=== PATIENT | female | born 1980 | race Caucasian/White ===

== ENCOUNTER 2021-11-17 17:39 | Emergency (ER) | payer BC, SELFPAY ==
[2021-11-17 18:07] VITALS: BP 139/83; PULSE 78; RESP 14; TEMP 36.4; O2SAT 98; BMI 33.5
--- NOTE | 2021-11-17 18:18 | HMH.EDUTC ---
[facility] [place] Clinical Impression: Sinusitis Qualifiers: Sinusitis location: unspecified location Chronicity: acute Recurrence: non-recurrent Qualified Code(s): J01.90 - Acute sinusitis, unspecified Otitis media Qualifiers: Otitis media type: suppurative Chronicity: acute Laterality: bilateral Recurrence: non-recurrent Spontaneous tympanic membrane rupture: without spontaneous rupture Qualified Code(s): H66.003 - Acute suppurative otitis media without spontaneous rupture of ear drum, bilateral Disposition: Home, Self-Care Condition on Discharge: Good Instructions: Middle Ear Infection, DI for Sinusitis Additional Instructions: Drink plenty of fluids. Take tylenol or ibuprofen for pain or fever. Take the medications as directed. Follow up with your regular doctor. GO TO THE ER FOR ANY WORSENING SYMPTOMS Prescriptions: Benzonatate [Benzonatate 100mg cap] 100 mg PO TIDP PRN #30 cap PRN Reason: Cough Transmission Status: Received by [id number] methylPREDNISolone [Medrol] 4 mg PO DIRECTED 6 Days #21 packet Transmission Status: Received by [id number] Azithromycin [Z-Tim 250mg Tab*] 250 mg PO UD DOSE PK #6 tab Transmission Status: Received by [id number] Referrals: Provider,Referral, [Primary Care Provider] - Time of Disposition: 18:47 Medical Decision Making - Medical Records Medical records reviewed: No: I reviewed the patient's medical records. - Joss Inquiry Pt receiving controlled substance: No Vital Signs: 11/17/21 18:07 11/17/21 18:47 Temperature 97.5 F L 98.1 F Temperature Source Oral Oral Pulse Rate 78 Pulse Rate [Left] 78 Respiratory Rate 14 14 Blood Pressure 139/83 Blood Pressure [Right Arm] 139/83 Blood Pressure Mean [Right Arm] 101 02 Sat by Pulse Oximetry 98 - Lab Data Lab results reviewed: Yes: I reviewed the patient's lab results. [facility] [place] HPI - General Stated complaint: ears and sinus Time Seen by Provider: 11/17/21 18:18 Description of Symptoms (Recalled from Triage Doc. by RN): patient comes in today with complaints of ear pain, sinus congestion. HEENT Symptoms (Recalled from RN notes): Yes Resp Symptoms (Recalled from RN notes): No Skin Symptoms (Recalled from RN notes): No MS Symptoms (Recalled from RN notes): No Functional Status (Recalled from RN notes): wnl - History of Present Illness Provider Complaint: She states that for the past 2 weeks she has had sinus congestion and bilateral ear pain. She denies any fever or chills or body aches. - Related Data Home Medications Medication Instructions Recorded Confirmed ALPRAZolam [Xanax 0.5mg tab] 0.5 mg PO NEEDED PRN 11/17/21 11/17/21 Sertraline HCl [Zoloft 100mg 100 mg PO DAILY 11/17/21 11/17/21 tablet] Previous Rx's Medication Instructions Recorded Azithromycin [Z-Tim 250mg Tab*] 250 mg PO UD DOSE PK #6 tab 11/17/21 Benzonatate [Benzonatate 100mg 100 mg PO TIDP PRN #30 cap 11/17/21 cap] methylPREDNISolone [Medrol] 4 mg PO DIRECTED 6 Days #21 11/17/21 packet Allergies Allergy/AdvReac Type Severity Reaction Status Date / Time No Known Allergies Allergy Verified 11/17/21 18:10 - Worker's Comp Is this a Worker's Comp case?: No [facility] History - Hepatitis A Screen Attestation statement:: This patient has been screened for Hepatitis A risk factors. I have reviewed the patient's past medical history: Yes ROS Obtained: Yes All systems reviewed & no additional complaints - Constitutional Constitutional: Reports as per HPI - Eyes Eyes: Denies eye discharge - ENT Ears, Nose, Mouth, and Throat: Reports as per HPI - Cardiovascular Cardiovascular: Denies chest pain - Respiratory Respiratory: Denies chest congestion, Reports cough Physical Exam - General General appearance: alert, in no apparent distress - Head Head exam: atraumatic, normocephalic, normal inspection - Eye Eye exam: Present:
[2021-11-17 18:47] VITALS: BP 139/83; PULSE 78; RESP 14; TEMP 36.7
== END 2021-11-17 18:49 | disposition home or self-care (01) ==
LOC: UTC 17:49
PROVIDERS: Emergency Provider Nurse Practitioner Family
DX: J01.90 Acute sinusitis, unspecified (principal); H66.003 Acute suppurative otitis media without spontaneous rupture of ear drum, bilateral
CPT/HCPCS: 99212; G0463

== ENCOUNTER → 2022-04-28 08:32 | Outpatient (CLI) | payer BC, SELFPAY ==
[2022-04-28 09:31] LABS: Basophils # 0.1 K/mm3 (0-0.2); Basophils % 1.2 % (0.1-2.0); Eosinophils # 0.2 K/mm3 (0.0-0.4); Eosinophils % 1.6 % (0.1-12.0); Hematocrit 40.3 % (37.0-47.0); Hemoglobin 13.3 g/dL (12.2-16.2); Lymphocytes # 2.4 K/mm3 (0.7-4.5); Lymphocytes % 25.7 % (10-50); Mean Corpuscular HGB Conc 33.1 g/dL (31.8-35.4); Mean Corpuscular Hemoglobin 29.5 pg (27.0-31.2); Mean Corpuscular Volume 89.3 fl (81-99); Mean Platelet Volume 7.9 fl (7.4-10.4); Monocytes # 0.3 K/mm3 (0.1-1.0); Monocytes % 3.3 % (1.7-9.3); Neutrophils # 6.2 K/mm3 (1.8-7.8); Neutrophils % 68.2 % (37.0-80.0); Platelet Count 433 K/mm3 (142-424); Red Blood Count 4.51 M/mm3 (4.20-5.40); White Blood Count 9.1 K/mm3 (4.8-10.8)
[2022-04-28 10:10] LABS: Alanine Aminotransferase 16 U/L (12-78); Albumin Level 4.7 g/dl (3.5-5.0); Albumin/Globulin Ratio 1.8 (1.1-1.8); Alkaline Phosphatase 121 U/L (38-126); Anion Gap 15.1 mEq/L (5-15); Aspartate Amino Transferase 23 U/L (14-36); Bilirubin,Total 0.5 mg/dl (0.2-1.3); Blood Urea Nitrogen 15 mg/dl (7-17); Calcium 9.9 mg/dl (8.4-10.2); Carbon Dioxide 23 mmol/L (22.0-30.0); Chloride 104 mmol/L (98-107); Chol/HDL Ratio 3.6 (1-3.5); Cholesterol 185 mg/dl (140-200); Estimated Glomerular Filt Rate 92 ml/min (>60); GFR (African American) 111 ML/MIN (>60); Globulin 2.6 g/dL (1.3-3.2); Glucose 123 mg/dl (74-100); HDL Cholesterol 51 mg/dl (40-60); Potassium 4.1 mmoL/L (3.5-5.1); Sodium 138 mmol/L (136-145); Total Protein,Serum 7.3 g/dl (6.3-8.2); Triglycerides 63 mg/dl (30-150); VLDL Cholesterol 13 mg/dL (0-40)
[2022-04-28 10:21] LABS: Direct LDL Cholesterol 117.46 mg/dL (100-129)
[2022-04-28 10:40] LABS: Thyroid Stimulating Hormone 1.63 uIU/mL (0.465-4.68)
== END ==
PROVIDERS: PCP Nurse Practitioner Family; Visit Provider Nurse Practitioner Family
DX: Z00.00 Encounter for general adult medical examination without abnormal findings (principal); Z79.899 Other long term (current) drug therapy
CPT/HCPCS: 36415; 80053; 80061; 84443; 85025

== ENCOUNTER 2022-07-09 12:02 | Emergency (ER) | payer BC, SELFPAY ==
[2022-07-09 12:45] VITALS: BP 132/87; PULSE 112; RESP 12; TEMP 36.9; O2SAT 99; BMI 34.3
--- NOTE | 2022-07-09 13:25 | EXP.UTC ---
Discharge Plan Disposition Patient Disposition: Home, Self-Care Condition: Good Prescriptions Prescriptions: New nnzemdkhhiwkjsa-jxirqffpy-WJ [Bromfed DM] 2-30-10 mg/5 mL syrup 10 ml PO Q6H PRN (Reason: cold symptoms) Qty: 118 0RF No Action sertraline 100 MG tablet 100 mg PO DAILY alprazolam 0.5 MG tablet 0.5 mg PO NEEDED PRN (Reason: Anxiety) Clinical Impressions Clinical Impression: Upper respiratory tract infection, Acute dysfunction of both eustachian tubes Instructions Patient Instructions: DI for Eustachian Tube Dysfunction-Adult, DI for Sinusitis Discharge ED Provider: Patricia Jennings [facility] General Stated complaint: congestion, headache Mode of Arrival: Ambulatory Source of Information: Patient Limitations: No Limitations Time Seen by Provider: 07/09/22 13:25 Description of Symptoms (Recalled from Triage Doc. by RN): ear pain, and sinus pressure HEENT Symptoms (Recalled from RN notes): Yes Resp Symptoms (Recalled from RN notes): No Skin Symptoms (Recalled from RN notes): No MS Symptoms (Recalled from RN notes): No Functional Status (Recalled from RN notes): n/a History of Present Illness Provider Complaint: Pt relates that for the last 3 days she has had a lot of sinus pressure and pain, earache and slight cough. She has been doing nasal lavage for her symptoms. Related Data Home Medications Medication Instructions Recorded Confirmed alprazolam 0.5 mg tablet 0.5 mg PO NEEDED PRN Anxiety 11/17/21 07/09/22 sertraline 100 mg tablet 100 mg PO DAILY Depression 11/17/21 07/09/22 Previous Rx's Medication Instructions Recorded qvwhnpacmiqruas-mwdfidrptzrktsy-PG 10 ml PO Q6H PRN cold symptoms 07/09/22 2 mg-30 mg-10 mg/5 mL oral syrup #118 mL (Bromfed DM) Allergies Allergy/AdvReac Type Severity Reaction Status Date / Time No Known Allergies Allergy Verified 07/09/22 12:54 Worker's Comp Is this a Worker's Comp case?: No [facility] Disclaimer: The information contained in this section may have been updated after the patient was seen, as this information can be updated by other users. Social History Smoking Status: Never smoker alcohol intake: current current occupational status: employed Travel in the last 8 weeks: None ROS Obtained: Yes All systems reviewed & no additional complaints except as documented Constitutional Constitutional: Reports system reviewed and no additional complaints, except as documented Eyes Eyes: Reports system reviewed and no additional complaints, except as documented ENT Ears, Nose, Mouth, and Throat: Reports as per HPI, Reports otalgia, Reports nasal congestion, Reports nasal discharge and Reports sinus pressure Cardiovascular Cardiovascular: Reports system reviewed and no additional complaints, except as documented Respiratory Respiratory: Reports system reviewed and no additional complaints, except as documented and Reports cough Gastrointestinal Gastrointestingal: Reports system reviewed and no additional complaints, except as documented Genitourinary Female Genitourinary: Reports system reviewed and no additional complaints, except as documented Musculoskeletal Musculoskeletal: Reports system reviewed and no additional complaints, except as documented Integumentary/Breasts Skin/Breast: Reports system reviewed and no additional complaints, except as documented Neurologic Neurologic: Reports system reviewed and no additional complaints, except as documented Endocrine Endocrine: Reports system reviewed and no additional complaints, except as documented Hematologic/Lymphatic Henatologic/Lymphatic: Reports system reviewed and no additional complaints, except as documented Allergic/Immunologic Allergic/Immunologic: Reports system reviewed and no additional complaints, except as documented Physical Exam General General appearance: alert and in no apparent distress Head Head exam: atraumatic and normocephalic Eye Eye
[2022-07-09 13:48] VITALS: BP 132/87; PULSE 112; RESP 12; TEMP 36.9; O2SAT 99
--- NOTE | 2022-07-09 16:21 | EXP.UTC ---
Discharge Plan Disposition Patient Disposition: Home, Self-Care Condition: Good Prescriptions Prescriptions: New phnbayoxbfnipnb-fwbpzktgy-DT [Bromfed DM] 2-30-10 mg/5 mL syrup 10 ml PO Q6H PRN (Reason: cold symptoms) Qty: 118 0RF amoxicillin 875 mg tablet 875 mg PO BID 10 Days Qty: 20 0RF No Action sertraline 100 MG tablet 100 mg PO DAILY alprazolam 0.5 MG tablet 0.5 mg PO NEEDED PRN (Reason: Anxiety) Clinical Impressions Clinical Impression: Upper respiratory tract infection, Acute dysfunction of both eustachian tubes Instructions Patient Instructions: DI for Sinusitis, DI for Eustachian Tube Dysfunction-Adult Discharge ED Provider: Patricia Jennings [facility] [place] General Stated complaint: congestion, headache Mode of Arrival: Ambulatory Source of Information: Patient Limitations: No Limitations Time Seen by Provider: 07/09/22 13:25 Description of Symptoms (Recalled from Triage Doc. by RN): ear pain, and sinus pressure HEENT Symptoms (Recalled from RN notes): Yes Resp Symptoms (Recalled from RN notes): No Skin Symptoms (Recalled from RN notes): No MS Symptoms (Recalled from RN notes): No Functional Status (Recalled from RN notes): n/a History of Present Illness Provider Complaint: Pt states that for the past few days she has had sinus drainage and ear pain. She states she has not taken anything for her symptoms. Related Data Home Medications Medication Instructions Recorded Confirmed alprazolam 0.5 mg tablet 0.5 mg PO NEEDED PRN Anxiety 11/17/21 07/09/22 sertraline 100 mg tablet 100 mg PO DAILY Depression 11/17/21 07/09/22 Previous Rx's Medication Instructions Recorded amoxicillin 875 mg tablet 875 mg PO BID 10 days #20 tabs 07/09/22 inaauicsmnwxagk-nximhbhxcoxnxlp-PE 10 ml PO Q6H PRN cold symptoms 07/09/22 2 mg-30 mg-10 mg/5 mL oral syrup #118 mL (Bromfed DM) Allergies Allergy/AdvReac Type Severity Reaction Status Date / Time No Known Allergies Allergy Verified 07/09/22 12:54 Worker's Comp Is this a Worker's Comp case?: No [facility] Disclaimer: The information contained in this section may have been updated after the patient was seen, as this information can be updated by other users. Social History (Updated 07/09/22 @ 13:40 by Patricia Jennings APRN) Smoking Status: Never smoker alcohol intake: current current occupational status: employed Travel in the last 8 weeks: None ROS Obtained: Yes All systems reviewed & no additional complaints except as documented Constitutional Constitutional: Reports system reviewed and no additional complaints, except as documented Eyes Eyes: Reports system reviewed and no additional complaints, except as documented ENT Ears, Nose, Mouth, and Throat: Reports system reviewed and no additional complaints, except as documented, Reports otalgia, Reports nasal congestion and Reports nasal discharge Cardiovascular Cardiovascular: Reports system reviewed and no additional complaints, except as documented Respiratory Respiratory: Reports system reviewed and no additional complaints, except as documented and Reports cough Gastrointestinal Gastrointestingal: Reports system reviewed and no additional complaints, except as documented Genitourinary Female Genitourinary: Reports system reviewed and no additional complaints, except as documented Musculoskeletal Musculoskeletal: Reports system reviewed and no additional complaints, except as documented Integumentary/Breasts Skin/Breast: Reports system reviewed and no additional complaints, except as documented Neurologic Neurologic: Reports system reviewed and no additional complaints, except as documented Endocrine Endocrine: Reports system reviewed and no additional complaints, except as documented Hematologic/Lymphatic Henatologic/Lymphatic: Reports system reviewed and no additional complaints, except as documented Allergic/Immunologic Allergic/Immunologic: Reports system revi
== END 2022-07-09 13:47 | disposition home or self-care (01) ==
PROVIDERS: Emergency Provider Nurse Practitioner Family
DX: J06.9 Acute upper respiratory infection, unspecified (principal); H69.83 Other specified disorders of Eustachian tube, bilateral
CPT/HCPCS: 99212; 99213; G0463

== ENCOUNTER → 2022-07-15 23:49 | Outpatient (CLI) | payer BC, SELFPAY ==
[2022-07-15 18:37] LABS: Basophils # 0.1 K/mm3 (0-0.2); Basophils % 0.8 % (0.1-2.0); Eosinophils # 0.2 K/mm3 (0.0-0.4); Eosinophils % 1.8 % (0.1-12.0); Hemoglobin 13.8 g/dL (12.2-16.2); Lymphocytes # 2.4 K/mm3 (0.7-4.5); Lymphocytes % 21.3 % (10-50); Mean Corpuscular HGB Conc 33.7 g/dL (31.8-35.4); Mean Corpuscular Hemoglobin 30.1 pg (27.0-31.2); Mean Corpuscular Volume 89.3 fl (81-99); Mean Platelet Volume 8.8 fl (7.4-10.4); Monocytes # 0.4 K/mm3 (0.1-1.0); Monocytes % 3.6 % (1.7-9.3); Neutrophils % 72.5 % (37.0-80.0); Platelet Count 432 K/mm3 (142-424); Red Blood Count 4.59 M/mm3 (4.20-5.40); Red Cell Distribution Width 13.2 % (11.5-17.5); White Blood Count 11.1 K/mm3 (4.8-10.8)
[2022-07-15 18:46] LABS: Alanine Aminotransferase 20 U/L (12-78); Albumin Level 4.5 g/dl (3.5-5.0); Albumin/Globulin Ratio 1.7 (1.1-1.8); Alkaline Phosphatase 95 U/L (38-126); Anion Gap 11.3 mEq/L (5-15); Aspartate Amino Transferase 23 U/L (14-36); Bilirubin,Total 0.5 mg/dl (0.2-1.3); Blood Urea Nitrogen 12 mg/dl (7-17); Calcium 8.8 mg/dl (8.4-10.2); Carbon Dioxide 29 mmol/L (22.0-30.0); Chloride 101 mmol/L (98-107); Chol/HDL Ratio 3.9 (1-3.5); Cholesterol 160 mg/dl (140-200); Estimated Glomerular Filt Rate 110 ml/min (>60); GFR (African American) 133 ML/MIN (>60); Globulin 2.6 g/dL (1.3-3.2); Glucose 121 mg/dl (74-100); HDL Cholesterol 41 mg/dl (40-60); Potassium 4.3 mmoL/L (3.5-5.1); Sodium 137 mmol/L (136-145); Total Protein,Serum 7.1 g/dl (6.3-8.2); Triglycerides 214 mg/dl (30-150); VLDL Cholesterol 43 mg/dL (0-40)
[2022-07-15 19:18] LABS: Thyroid Stimulating Hormone 1.84 uIU/mL (0.465-4.68)
[2022-07-15 19:26] LABS: Hemoglobin A1C 5.7 % (4.0-6.0)
== END ==
PROVIDERS: PCP Student in an Organized Health Care Education/Training Program; Visit Provider Student in an Organized Health Care Education/Training Program
DX: Z76.89 Persons encountering health services in other specified circumstances (principal); Z13.220 Encounter for screening for lipoid disorders; Z13.1 Encounter for screening for diabetes mellitus; Z13.29 Encounter for screening for other suspected endocrine disorder; Z79.899 Other long term (current) drug therapy
CPT/HCPCS: 80053; 80061; 83036; 84443; 85025

== ENCOUNTER → 2022-07-27 10:38 | Outpatient (CLI) | payer BC, SELFPAY ==
--- NOTE | 2022-07-27 10:38 | MM_ITS ---
PROCEDURE INFORMATION: Exam: MG Bilateral Screening 3D Mammography Exam date and time: 07/27/2022 10:51 AM Age: 42 years old Clinical indication: Screening examination TECHNIQUE: Imaging protocol: Bilateral Screening tomosynthesis and 2D mammography including computer-aided detection (CAD) when performed. COMPARISON: No relevant prior studies available. FINDINGS: MAMMOGRAPHY: Breast composition: The breasts are almost entirely fatty. Mass: None. Architectural distortion: None. Calcifications: No suspicious calcifications. Asymmetric density: None. Skin thickening: None. Axillary adenopathy: None. IMPRESSION: No mammographic evidence of malignancy. Annual screening is recommended unless otherwise clinically indicated. ASSESSMENT: BI-RADS Category 1: Negative
== END ==
PROVIDERS: PCP Student in an Organized Health Care Education/Training Program; Visit Provider Student in an Organized Health Care Education/Training Program
DX: Z12.31 Encounter for screening mammogram for malignant neoplasm of breast (principal)
CPT/HCPCS: 77063; 77067

== ENCOUNTER 2022-09-05 10:57 | Outpatient (RCR) | payer BC, SELFPAY ==
--- NOTE | 2022-09-05 11:32 | HMH.PTOPEV ---
PT Outpatient Evaluation Rehab PT Outpatient Evaluation Start: 09/05/22 11:16 Freq: Status: Active Protocol: Document 09/05/22 11:16 TOPHER (Rec: 09/05/22 11:31 TOPHER [id number]) E-signed By Kip Goode, PT Outpatient Therapy Subjective History Subjective History Pt reports insidious onset left sided tinnitis beginning ~ 3 months ago following sinus infection, and reports left sided jaw discomfort beginning ~1 month ago. 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, and 'my neck has been hurting a bit too.' *see initial SOAP note for all objective measures* Chief Complaint Pain,Stiff,Clicks Symptom Type Ache,Sharp,Dull Symptoms Relieved By Rest/Positioning,Heat,Ice,OTC Meds Symptoms Aggravated By Physical Activity Prior Functional Limitations Recreation Activity Current Functional Limitations Squatting Symptom Description Constant but Variable Level of pain today (0-10) 8 Pain scale - at its best (0-10) 8 Pain scale - at its worst (0-10) 8 Outpatient Therapy Assessment Impairments Problems/Impairmments Palpation Tenderness,Impaired Range of Motion,Impaired Strength,Impaired Recreational Activities,Subjective C/O Pain,Impaired Self Care/Self Management Prognosis Rehab Potential Good Clinical Impression Consistent with Diagnosis Yes Short Term Goals Number of Weeks 4-6 Decreased Palpation Tenderness Yes: 0-1/4 Left masseter, lateral pterygoid Increase Range of Motion Yes: WFL AROM B/L TMJ Increase Strength Yes: 4+-5/5 masseter,lateral pterygoid Return to Recreational Activities Yes: EATING,DRINKING,CHEWING WFL Decrease Subjective C/O Pain Yes: 0-2/10 w/above activities Patient to be Ind w/ HEP Yes Patient to be Ind w/ Advanced HEP Yes Outpatient Therapy Plan of Care Treatment Plan May Include Therapeutic Exercise Including Home Yes Exercise Program Manual Therapy Techniques Yes Neuromuscular Re-education Yes T
== END 2022-09-05 10:59 | disposition home or self-care (01) ==
LOC: PT 10:57
PROVIDERS: PCP Student in an Organized Health Care Education/Training Program; Visit Provider Otolaryngology
DX: S03.00XA Dislocation of jaw, unspecified side, initial encounter (principal)
CPT/HCPCS: 97163

== ENCOUNTER → 2022-10-03 15:34 | Outpatient (CLI) | payer BC, SELFPAY ==
--- NOTE | 2022-10-03 15:45 | XR_ITS ---
FINAL REPORT CLINICAL HISTORY: Neck pain, no injury. FINDINGS: SPINE CERVICAL COMPLETE/FLEXION & EXT The vertebrae are normal height. Alignment is normal. There is a disc osteophyte complex at C5-C6. There is no abnormal movement with flexion or extension. There is no significant neural foraminal narrowing. Soft tissues are unremarkable. IMPRESSION: No acute process. Reviewed, Interpreted and Dictated by Jayden Natarajan III, MD Transcribed by Chucky Davis Authenticated and . [facility]
[2022-10-03 17:33] LABS: Thyroid Stimulating Hormone 1.56 uIU/mL (0.465-4.68)
[2022-10-03 18:09] LABS: Vitamin B12 645 pg/mL (239-931)
== END ==
PROVIDERS: PCP Student in an Organized Health Care Education/Training Program; Visit Provider Nurse Practitioner Family
DX: M54.2 Cervicalgia (principal); E66.9 Obesity, unspecified; F41.9 Anxiety disorder, unspecified; F45.8 Other somatoform disorders; H90.3 Sensorineural hearing loss, bilateral; H93.19 Tinnitus, unspecified ear; R06.83 Snoring; R29.2 Abnormal reflex; R53.83 Other fatigue; Z68.33 Body mass index [BMI] 33.0-33.9, adult
CPT/HCPCS: 36415; 72052; 82607; 82746; 84443

== ENCOUNTER → 2022-10-19 10:07 | Outpatient (CLI) | payer BC, SELFPAY ==
--- NOTE | 2022-10-19 10:07 | MR_ITS ---
FINAL REPORT CLINICAL HISTORY: hearing loss, eval posterior fossa tinnitus 17ml prohance injected FINDINGS: Multiplanar MR imaging of the brain was performed without and with contrast, with attention to the posterior fossa, cerebellopontine angles and internal auditory canals. There is no evidence of intracranial hemorrhage or mass. The ventricular size is within normal limits. There is no evidence of shift of the midline structures. No area of abnormal restricted diffusion is identified. Normal major vessel vascular flow voids are seen. No abnormal contrast enhancement is identified within the brain. No mass or abnormal contrast enhancement is seen within the cerebellopontine angles or internal auditory canals. No focal abnormality is identified of the temporal bones. IMPRESSION: No acute intracranial abnormality identified. No mass or abnormal contrast enhancement identified within the cerebellopontine angles or internal auditory canals. Reviewed, Interpreted and Dictated by Rodney Lea MD Transcribed by Nancy Mcarthur Authenticated and [facility]
== END ==
LOC: RAD 10:07
PROVIDERS: PCP Student in an Organized Health Care Education/Training Program; Visit Provider Nurse Practitioner Family
DX: H93.19 Tinnitus, unspecified ear (principal); H90.3 Sensorineural hearing loss, bilateral; F45.8 Other somatoform disorders; M54.2 Cervicalgia; F41.9 Anxiety disorder, unspecified; R06.83 Snoring; R29.2 Abnormal reflex; R53.83 Other fatigue; E66.9 Obesity, unspecified; Z68.33 Body mass index [BMI] 33.0-33.9, adult
CPT/HCPCS: 70553; A9576

== ENCOUNTER → 2022-11-04 08:57 | Outpatient (CLI) | payer BC, SELFPAY ==
[2022-11-04 09:29] LABS: Basophils # 0.1 K/mm3 (0-0.2); Basophils % 0.9 % (0.1-2.0); Eosinophils # 0.2 K/mm3 (0.0-0.4); Eosinophils % 2.2 % (0.1-12.0); Hematocrit 39.6 % (37.0-47.0); Hemoglobin 13.1 g/dL (12.2-16.2); Lymphocytes # 2.3 K/mm3 (0.7-4.5); Mean Corpuscular Hemoglobin 28.6 pg (27.0-31.2); Mean Corpuscular Volume 86.7 fl (81-99); Mean Platelet Volume 7.6 fl (7.4-10.4); Monocytes # 0.3 K/mm3 (0.1-1.0); Monocytes % 3.2 % (1.7-9.3); Neutrophils # 6.2 K/mm3 (1.8-7.8); Neutrophils % 68.7 % (37.0-80.0); Platelet Count 316 K/mm3 (142-424); Red Blood Count 4.58 M/mm3 (4.20-5.40); Red Cell Distribution Width 13.1 % (11.5-17.5)
[2022-11-04 10:13] LABS: Anion Gap 14.4 mEq/L (5-15); Blood Urea Nitrogen 9 mg/dl (7-17); Calcium 8.9 mg/dl (8.4-10.2); Carbon Dioxide 25 mmol/L (22.0-30.0); Chloride 102 mmol/L (98-107); Estimated Glomerular Filt Rate 110 ml/min (>60); GFR (African American) 133 ML/MIN (>60); Glucose 139 mg/dl (74-100); Potassium 4.4 mmoL/L (3.5-5.1); Sodium 137 mmol/L (136-145)
[2022-11-04 10:14] LABS: Hemoglobin A1C 5.7 % (4.0-6.0)
== END ==
LOC: LAB 08:58
PROVIDERS: PCP Nurse Practitioner Family; Visit Provider Nurse Practitioner Family
DX: D75.839 Thrombocytosis, unspecified (principal); R73.03 Prediabetes; Z86.32 Personal history of gestational diabetes; G47.33 Obstructive sleep apnea (adult) (pediatric); R06.83 Snoring; R53.83 Other fatigue
CPT/HCPCS: 36415; 80048; 83036; 85025; G0399

== ENCOUNTER → 2022-12-06 10:36 | Outpatient (CLI) | payer BC, SELFPAY | LOC: RT 10:37 | PROVIDERS: PCP Nurse Practitioner Family; Visit Provider Nurse Practitioner | DX: R00.0 Tachycardia, unspecified (principal); I49.9 Cardiac arrhythmia, unspecified; F41.1 Generalized anxiety disorder; G47.33 Obstructive sleep apnea (adult) (pediatric); R73.03 Prediabetes | CPT/HCPCS: 93270 ==

== ENCOUNTER → 2022-12-23 13:41 | Outpatient (CLI) | payer BC, SELFPAY ==
--- NOTE | 2022-12-23 13:45 | CA_ITS ---
APPROVED REPORT EXAM: Comprehensive 2D, Doppler, and color-flow Echocardiogram First Assist: Beatriz Moss RVT Ht: 5 ft 3 in Wt: 190lbs BSA: 1.89 BP: 134/93 mmHg Indications: SOA,JAY JAY,TACHYCARDIA,ARRHYTHMIA 2D Dimensions LVOT 2.15 cm (M/F) 1.5-2.5 LA Volume 18.70 mL LA Volume Index 9.89 mL/m2 (M/F) 16-34 M-Mode Dimensions RVDd 3.38 cm (0.9-2.6) LA Diam 2.71 cm (1.9-4.0) LVDd 3.92 cm (3.5-5.7) Ao Diam 2.79 cm (2.0-3.7) LVDs 2.43 cm (3.5-5.7) IVSd 1.06 cm (0.6-1.1) PWd 0.68 cm (0.6-1.1) EF (Teich) 68.80% FS 38.00% EDV (Teich) 66.70 mL TAPSE 1.79 (<1.7) ESV (Teich) 20.80 mL LV Diastology MED E' 11.20 (< 7 cm/sec) LAT E' 15.80 (<10 cm/sec) Aortic Valve AO Peak GR. 2.60 mmHg Pulmonary Valve PV Peak Velocity 77.00 (50-150 cm/s) Left Ventricle The left ventricle is normal size. The left ventricular systolic function is normal. The left ventricular ejection fraction is within the normal range. There is normal left ventricular wall thickness. There is normal LV segmental wall motion. The left ventricular diastolic function is normal. LVEF is 55-60%. Right Ventricle The right ventricle is normal size. The right ventricular systolic function is normal. Atria The left atrium size is normal. The right atrium size is normal. There is no Doppler evidence of interatrial shunt. Aortic Valve The aortic valve is normal in structure. There is no aortic valvular stenosis. No aortic regurgitation is present. Mitral Valve The mitral valve is normal in structure. No evidence of mitral valve stenosis. There is no mitral valve regurgitation noted. Tricuspid Valve The tricuspid valve leaflets are thin and pliable. Trace tricuspid regurgitation. There is insufficient TR jet to estimate RVSP. Pulmonic Valve The pulmonary valve is normal in structure. Trace pulmonic regurgitation. Great Vessels The aortic root is normal in size. The ascending aorta is normal in size. IVC is normal in size and collapses >50% with inspiration. Pericardium There is no pericardial effusion. Other Information Study Quality: Adequate Conclusion Normal biventricular systolic function. No significant valvular disease. Electronically signed by : Jen Nassar, 12/25/2022 17:27:27
== END ==
LOC: RT 13:41
PROVIDERS: PCP Nurse Practitioner Family; Visit Provider Nurse Practitioner
DX: I49.9 Cardiac arrhythmia, unspecified (principal); R00.0 Tachycardia, unspecified; F41.1 Generalized anxiety disorder; R73.03 Prediabetes; G47.33 Obstructive sleep apnea (adult) (pediatric)
CPT/HCPCS: 93306

== ENCOUNTER 2023-05-20 13:47 | Emergency (ER) | payer BC, SELFPAY ==
[2023-05-20 14:40] VITALS: BP 140/86; PULSE 140; RESP 19; TEMP 38.1; O2SAT 99; BMI 33.4
--- NOTE | 2023-05-20 14:57 | ED_ITS ---
Discharge Plan Disposition Patient Disposition: Home, Self-Care Condition: Good Prescriptions Prescriptions: New azithromycin [Zithromax Z-Tim] 250 mg tablet See Rx Instructions .ROUTE .COMPLEX 5 Days Qty: 6 0RF Rx Instructions: For 250 mg dose pack: take 500 mg today (day 1), then 250 mg for 4 days (days 2-5) guaifenesin [Mucinex] 600 mg tablet extended release 12hr 1,200 mg PO BID PRN (Reason: cough) Qty: 20 0RF methocarbamol 500 mg tablet 500 mg PO BID PRN (Reason: muscle spasm) Qty: 10 0RF fluticasone propionate [Flonase Allergy Relief] 50 mcg/actuation spray,suspension 1 - 2 spray intranasal DAILY Qty: 16 0RF Rx Instructions: administer into each nostril daily No Action sertraline 100 mg tablet 150 mg PO DAILY Qty: 45 1RF buspirone 10 mg tablet 10 mg PO BID Qty: 60 1RF alprazolam 0.5 MG tablet 0.5 mg PO NEEDED PRN (Reason: Anxiety) Referrals Follow up/Referrals: Liyah Washington APRN [Primary Care Provider] - See instructions Activity Restrictions/Add. Instructions Additional Instructions/Restrictions: *Monitor Temp, Over the counter Motrin or Tylenol as directed/as needed Tylenol every 4 hours and Motrin every 6 hours (as long as your family doctor has told you that you can take it) for fever or pain. and straight to ER if unable to lower temp less than 101.0 after medication given *Warm salt water gargles may help to soothe the throat *Throat Lozenges? *Warm fluids like tea with honey may help to soothe the throat? *Sleep elevated *Humidifier/Vaporizer Take medication as prescribed Follow up IMMEDIATELY for new or worsening symptoms or no Noticeable improvement over the next 48-72 hours. 911 for difficulty breathing or swallowing You were tested for today for COVID19 your test result should be back in the next 24-48 hours, you may check your results on the [facility] [employer] [facility] if your COVID or Influenza is positive you must Quarantine for 5 days Clinical Impressions Clinical Impression: Sinusitis Qualifiers: Sinusitis location: unspecified location Chronicity: unspecified Qualified Code(s): J32.9 - Chronic sinusitis, unspecified Instructions Patient Instructions: Sinusitis, DI for Sinusitis, DI for Thoracic Back Pain Discharge ED Provider: Prisca Patricia [facility] General Stated complaint: bilateral shoulder pain, no accident Mode of Arrival: Ambulatory Source of Information: Patient Limitations: No Limitations Time Seen by Provider: 05/20/23 14:58 Description of Symptoms (Recalled from Triage Doc. by RN): PATIENT C/O SINUS DRAINAGE AND UPPER BACK PAIN SINCE YESTERDAY HEENT Symptoms (Recalled from RN notes): Yes Resp Symptoms (Recalled from RN notes): No Skin Symptoms (Recalled from RN notes): No MS Symptoms (Recalled from RN notes): No Functional Status (Recalled from RN notes): WNL History of Present Illness Provider Complaint: Patient states that she has been having some sinus congestion and drainage for several days States that yesterday she bent over a [employer] and had pain in her upper back area across her shoulder blade area States that she thinks she may have pulled something States that she used a heating pad last night and it helped a little bit but area feels tight and she can stretch it and it does feel a little better States that she has health center anxiety and when she comes in her heart rate will go up and she gets nervous Related Data Home Medications Medication Instructions Recorded Confirmed alprazolam 0.5 mg tablet 0.5 mg PO NEEDED PRN Anxiety 11/17/21 05/20/23 Previous Rx's Medication Instructions Recorded buspirone 10 mg tablet 10 mg PO BID #60 tabs 05/17/23 sertraline 100 mg tablet 150 mg PO DAILY Depression #45 tabs 05/17/23 azithromycin 250 mg tablet See Rx Instructions PO .COMPLEX 5 05/20/23 (Zithromax Z-Tim) days #6 tabs fluticasone propionate 50 1 - 2 spray intranasal DAILY #16 05/20/23 mcg/actuation nasal grams spray,suspension (Flonase Allergy Relief) guaifenesin 600 mg tablet, 1,200 mg PO BID PRN cough #20 tabs 05/20/23 extended release 12 hr (Mucinex) methocarbamol 500 mg tablet 500 mg PO BID PRN muscle spasm #10 05/20/23 tabs Allergies Allergy/AdvReac Type Severity Reaction Status Date / Time No Known Allergies Allergy Verified 05/17/23 09:50 Worker's Comp Is this a Worker's Comp case?: No [facility] Disclaimer: The information contained in this section may have been updated after the patient was seen, as this information can be updated by other users. Medical History (Updated 05/20/23 @ 15:40 by Prisca Patricia APRN) Attention deficit disorder (ADD) in adult Generalized anxiety disorder Tinnitus TMJ (dislocation of temporomandibular joint) Surgical History History of cholecystectomy Family History Other Cancer Diabetes Heart attack Stroke Social History Smoking Status: Never smoker second hand exposure: No alcohol intake: current counseling given: No substance use type: denies use counseling given: No current occupational status: employed Travel in the last 8 weeks: None adopted: No caregiver/support person: Yes (for her 12 year old son) foster care: No household members: spouse housing: house lives independently: Yes marital status: number of children: 2 number of grandchildren: 0 education level: college service: No [place] [facility]: No 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 Travel: No sexually active: Yes caffeine: Yes physical activity: none dipesh/oriental orthodox: [employer] special dipesh needs: No working smoke detector in home: Yes fire extinguisher in home: Yes carbon monox detector in home: Yes firearms in home: No do you feel safe at home: Yes victim of physical abuse: No victim of emotional abuse: No victim of sexual abuse: No would you like helpful sources: No ROS Obtained: Yes All systems reviewed & no additional complaints except as documented and Yes Systems reviewed as appropriate & no additional complaints except as documented Constitutional Constitutional: Reports system reviewed and no additional complaints, except as documented and Reports as per HPI ENT Ears, Nose, Mouth, and Throat: Reports system reviewed and no additional co mplaints, except as documented, Reports as per HPI, Reports sinus pain and Reports sinus pressure Cardiovascular Cardiovascular: Reports system reviewed and no additional complaints, except as documented, Reports as per HPI and Denies dyspnea Respiratory Respiratory: Reports system reviewed and no additional complaints, except as documented, Reports as per HPI, Denies shortness of breath, Denies chest congestion, Denies cough and Denies dyspnea Gastrointestinal Gastrointestingal: Reports system reviewed and no additional complaints, except as documented and as per HPI Musculoskeletal Musculoskeletal: Reports system reviewed and no additional complaints, except as documented, Reports as per HPI, Reports back pain and Reports other Comments: pain in upper back across shoulder area after bending over in [employer] yesterday and feeling something pull Integumentary/Breasts Skin/Breast: Reports system reviewed and no additional complaints, except as documented and Reports as per HPI Neurologic Neurologic: Reports system reviewed and no additional complaints, except as documented and Reports as per HPI Physical Exam General General appearance: alert and in no apparent distress ENT ENT exam: Present mucous membranes moist Expanded ENT Exam Nose exam: Present sinus tenderness Throat exam: Present other (Pharyngeal erythema noted with PND) Respiratory Respiratory exam: Present normal lung sounds bilaterally; Absent respiratory distress or wheezes Cardiovascular Cardiovascular exam: Present regular rate, normal rhythm and normal heart sounds Abdominal Exam Abdominal exam: Present soft and normal bowel sounds; Absent distention or tenderness Back Exam Back exam: Present tenderness Back 1 view image: 1. reports achy like pain since she bent over yesterday in [employer] and felt something pull Denies falling Neurological Exam Neurological exam: Present alert, oriented X3 and normal gait Medical Decision Making Joss Inquiry Pt receiving controlled substance: No Joss was queried for this patient: No Vital Signs: 05/20/23 14:40 Temperature 100.6 F H Temperature Source Oral Pulse Rate [Left Brachial] 140 H Respiratory Rate 19 Blood Pressure [Left Arm] 140/86 Blood Pressure Mean [Left Arm] 104 Blood Pressure Source [Left Arm] Automatic Cuff Blood Pressure Position [Left Arm] Sitting 02 Sat by Pulse Oximetry 99 Oxygen Delivery Method Room Air Lab Data Lab results reviewed: Yes I reviewed the patient's lab results. Medical Decision Narrative: discussed transfer to the ED for further work up and evaluation and declined at this time
[2023-05-20 15:22] LABS: UTC Influenza A Antigen Negative (Negative); UTC Influenza B Antigen Negative (Negative)
[2023-05-20 15:45] VITALS: BP 140/86; PULSE 112; RESP 19; TEMP 38.1; O2SAT 99
== END 2023-05-20 15:51 | disposition home or self-care (01) ==
PROVIDERS: Emergency Provider Nurse Practitioner; PCP Nurse Practitioner Family
DX: U07.1 COVID-19 (principal); J01.90 Acute sinusitis, unspecified; M54.6 Pain in thoracic spine; R09.81 Nasal congestion
CPT/HCPCS: 87635; 87804; 99212; 99214; G0463

== ENCOUNTER 2023-06-13 03:32 | Emergency (ER) | payer BC, SELFPAY ==
[2023-06-13] VITALS (7 sets, daily range): BP systolic 117–164; BP diastolic 75–99; PULSE 85–139; RESP 8–22; TEMP 36.4–36.7; O2SAT 96–99; BMI 34.3
--- NOTE | 2023-06-13 03:42 | ECG_ITS ---
APPROVED REPORT Exam: Resting ECG HR:130 bpm ECG Measurements Heart Rate 130 AXES HI 175 P 70 QRSd 89 QRS 58 QT 333 T 18 QTc 410 Conclusion SINUS TACHYCARDIA NONSPECIFIC ST & T-WAVE ABNORMALITY ABNORMAL RHYTHM ECG UNCONFIRMED REPORT Electronically signed by : Shawn Sanz MD 06/13/2023 16:38:13
--- NOTE | 2023-06-13 03:49 | ED_ITS ---
Discharge Plan Disposition Patient Disposition: Home, Self-Care Condition: Good Prescriptions Prescriptions: No Action sertraline 100 mg tablet 150 mg PO DAILY Qty: 45 1RF buspirone 10 mg tablet 10 mg PO BID Qty: 60 1RF fluticasone propionate [Flonase Allergy Relief] 50 mcg/actuation spray,suspension 1 - 2 spray intranasal DAILY Qty: 16 0RF Rx Instructions: administer into each nostril daily alprazolam 0.5 MG tablet 0.5 mg PO NEEDED PRN (Reason: Anxiety) Referrals Follow up/Referrals: Liyah Washington APRN [Primary Care Provider] - See instructions Activity Restrictions/Add. Instructions Additional Instructions/Restrictions: You were evaluated in the ER for palpitations, high heart rate. You are appropriate for discharge at this time. Please contact your primary care physician for follow-up in 2 to 3 days. Discussed with your primary care physician or your spiral runner the option of starting propranolol to help with your heart rate and anxiety symptoms. Continue taking your home medications as previously prescribed. Return to the ER with any new, worsening, or otherwise concerning symptoms. Clinical Impressions Clinical Impression: Tachycardia, Palpitations Discharge ED Provider: Lani Melo General Adult HPI <Solis Patel MD - Last Filed: 06/13/23 06:55> General Chief complaint: Arrhythmia/Palpitations Stated complaint: high heart rate Time Seen by Provider: 06/13/23 03:49 Mode of Arrival: Ambulatory Source of Information: Patient Limitations: No Limitations Description of Symptoms (Recalled from ER Triage Doc. by RN): Pt presents with heart palpitations and fast heart rate throughout the night associated with indigestion and nausea. Pt states she feels really anxious and took .5 mg zanax around 0300. Denies any chest pain or SOA. History of Present Illness HPI narrative: This 43-year-old female with a history of anxiety who takes Xanax, BuSpar, Zoloft presents to the ER with concerns of rapid heart rate. Patient states she has been watching her heart rate very closely and it has been running between 100-120. She also has mild indigestion and nausea. Patient states she took her Xanax around 3 AM. Patient states her symptoms are persistent. Related Data Home Medications Medication Instructions Recorded Confirmed alprazolam 0.5 mg tablet 0.5 mg PO NEEDED PRN Anxiety 11/17/21 06/01/23 Previous Rx's Medication Instructions Recorded buspirone 10 mg tablet 10 mg PO BID #60 tabs 05/17/23 sertraline 100 mg tablet 150 mg PO DAILY Depression #45 tabs 05/17/23 fluticasone propionate 50 1 - 2 spray intranasal DAILY #16 05/20/23 mcg/actuation nasal grams spray,suspension (Flonase Allergy Relief) Allergies Allergy/AdvReac Type Severity Reaction Status Date / Time No Known Allergies Allergy Verified 06/01/23 14:27 PFSH <Solis Patel MD - Last Filed: 06/13/23 06:55> [facility] Disclaimer: The information contained in this section may have been updated after the patient was seen, as this information can be updated by other users. Medical History Attention deficit disorder (ADD) in adult Generalized anxiety disorder Tinnitus Ongoing symptomatic improvement, rarely noted TMJ (dislocation of temporomandibular joint) Surgical History History of cholecystectomy Family History Other Cancer Diabetes Heart attack Stroke Social History Smoking Status: Unknown if ever smoked second hand exposure: No alcohol intake: current counseling given: No substance use type: denies use counseling given: No current occupational status: employed Travel in the last 8 weeks: None adopted: No caregiver/support person: Yes (for her 12 year old son) foster care: No household members: spouse housing: house lives independently: Yes marital status: number of children: 2 number of grandchildren: 0 education level: college service: No assisted: No 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 Travel: No sexually active: Yes caffeine: Yes physical activity: none dipesh/jainism: Orthodoxy special dipesh needs: No working smoke detector in home: Yes fire extinguisher in home: Yes carbon monox detector in home: Yes firearms in home: No do you feel safe at home: Yes victim of physical abuse: No victim of emotional abuse: No victim of sexual abuse: No would you like helpful sources: No <Solis Patel MD - Last Filed: 06/13/23 06:55> ROS Obtained: Yes All systems reviewed & no additional complaints except as documented Constitutional Constitutional: Denies chills, Denies fever(s), Denies headache(s) and Denies weakness Eyes Eyes: Denies change in vision ENT Ears, Nose, Mouth, and Throat: Denies dizziness, Denies headache(s), Denies nasal congestion and Denies sore throat Cardiovascular Cardiovascular: Denies chest pain, Denies dyspnea, Denies leg edema, Reports palpitations and Reports rapid heart rate Respiratory Respiratory: Denies cough and Denies dyspnea Gastrointestinal Gastrointestingal: Denies constipation, diarrhea, nausea or vomiting Genitourinary Female Genitourinary: Denies dysuria Musculoskeletal Musculoskeletal: Denies arthralgias, Denies myalgias, Denies numbness and Denies tingling Integumentary/Breasts Skin/Breast: Denies change in pigmentation Neurologic Neurologic: Denies dizziness, Denies headache(s), Denies numbness, Denies tingling and Denies weakness Endocrine Endocrine: Reports palpitations Physical Exam <Solis Patel MD - Last Filed: 06/13/23 06:55> General General appearance: alert and in no apparent distress Head Head exam: atraumatic and normocephalic Eye Eye exam: Present PERRL and EOMI ENT ENT exam: Present mucous membranes moist Neck Neck exam: Present normal inspection and full ROM Chest Chest inspection: Present symmetric chest wall rise Respiratory Respiratory exam: Present normal lung sounds bilaterally; Absent respiratory distress, wheezes or stridor Cardiovascular Cardiovascular exam: Present normal rhythm and tachycardia; Absent systolic murmur Abdominal Exam Abdominal exam: Present soft; Absent distention, tenderness, guarding or rebound Extremities Exam Extremities exam: Present full ROM Neurological Exam Neurological exam: Present alert and oriented X3; Absent motor sensory deficit Psychiatric Psychiatric exam: Present normal affect and normal mood Skin Skin exam: Present warm and dry Medical Decision Making <Solis Patel MD - Last Filed: 06/13/23 06:55> Joss Inquiry Pt receiving controlled substance: No Vital Signs: 06/13/23 03:33 06/13/23 04:30 06/13/23 05:06 Temperature 97.6 F Temperature Source Oral Pulse Rate 115 H 113 H Pulse Rate [Left] 139 H Respiratory Rate 22 8 L 11 L Blood Pressure 147/87 H 143/94 H Blood Pressure [Right Arm] 164/99 H Blood Pressure Mean [Right Arm] 120 Blood Pressure Source [Right Arm] Automatic Cuff Blood Pressure Position [Right Arm] Sitting 02 Sat by Pulse Oximetry 98 98 96 Oxygen Delivery Method Room Air 06/13/23 05:08 06/13/23 05:30 06/13/23 06:00 Temperature Temperature Source Pulse Rate 112 H 105 H 98 H Pulse Rate [Left] Respiratory Rate 11 L 9 L 18 Blood Pressure 143/94 H 133/94 H 117/79 Blood Pressure [Right Arm] Blood Pressure Mean [Right Arm] Blood Pressure Source [Right Arm] Blood Pressure Position [Right Arm] 02 Sat by Pulse Oximetry 99 98 96 Oxygen Delivery Method Lab Data Lab Results 06/13/23 03:42: WBC 11.8 H, RBC 4.47, Hgb 13.6, Hct 40.0, MCV 89.4, MCH 30.5, MCHC 34.1, RDW 13.3, Plt Count 387, MPV 7.7, Neut % (Auto) 62.2, Lymph % (Auto) 31.3, Taliaferro % (Auto) 3.7, Eos % (Auto) 1.6, Baso % (Auto) 1.1, Neut # (Auto) 7.3, Lymph # (Auto) 3.7, Taliaferro # (Auto) 0.4, Eos # (Auto) 0.2, Baso # (Auto) 0.1, D- Dimer 0.54 H, Sodium 136, Potassium 3.1 L, Chloride 102, Carbon Dioxide 24, Anion Gap 13.1, BUN 17, Creatinine 0.90, Estimated Creat Clear 115, Estimated GFR 68, Est GFR ( Amer) 83, Glucose 124 H, Calcium 8.7, Total Bilirubin 0.8, AST 25, ALT 22, Alkaline Phosphatase 89, Troponin I < 0.01, Total Protein 7.7, Albumin 4.6, Globulin 3.1, Albumin/Globulin Ratio 1.5, TSH 3.05, Free T4 1.14, Serum HCG, Qual Negative 06/13/23 06:35: Troponin I < 0.01 06/13/23 03:42 06/13/23 03:42 Orders (Tests/Meds): ED MEDICATIONS Generic Name Dose Route Start Last Admin Trade Name Freq PRN Reason Stop Dose Admin Sodium Chloride 10 ml 06/13/23 05:08 06/13/23 05:09 Sodium Chloride 0.9% 10ml Syr (Rad Only) IV 07/13/23 05:07 10 ml NEEDED PRN Administration Maintain IV Site Discontinued Medications Generic Name Dose Route Start Last Admin Trade Name Freq PRN Reason Stop Dose Admin Hydroxyzine Pamoate 50 mg 06/13/23 03:58 06/13/23 04:05 Hydroxyzine Pamoate 25mg Capsule PO 06/13/23 03:59 50 mg ONCE ONE Administration Lactated Ringer's 1,000 mls @ 999 mls/hr 06/13/23 03:58 06/13/23 04:06 Lactated Ringer's 1000 Ml Bag IV 06/13/23 04:58 999 mls/hr .Q1H1M ONE Administration Iopamidol 75 ml 06/13/23 05:08 06/13/23 05:09 Iopamidol-370 (76%);100ml Bottle IV 06/13/23 05:09 75 ml ONCE ONE Administration Potassium Chloride 40 meq 06/13/23 04:38 06/13/23 04:42 Potassium Chloride 20meq Tab PO 06/13/23 04:39 40 meq ONCE ONE Administration ORDERS Category Date Time Status CT angio chest PE protocol Stat Cat Scan 06/13/23 04:42 Completed Chest XR 2 view (NOT portable) [XR chest 2V] Stat Exams 06/13/23 03:50 Completed Beta HCG, Qual [HCG Qualitative, Serum] Stat Lab 06/13/23 03:42 Completed Complete Blood Count Auto Diff Stat Lab 06/13/23 03:42 Completed Comprehensive Metabolic Panel Stat Lab 06/13/23 03:42 Completed D-Dimer Stat Lab 06/13/23 03:42 Completed Free T4 (Free Thyroxine) Stat Lab 06/13/23 03:42 Completed TSH [Thyroid Stimulating Hormone] Stat Lab 06/13/23 03:42 Completed Troponin I Q3H Lab 06/13/23 06:35 Completed Troponin I Q3H Lab 06/13/23 10:00 Ordered Troponin I Stat Lab 06/13/23 03:42 Completed ECG initial Besson Routine Y 06/13/23 03:42 Completed HEART Score History (anamnesis): Slightly suspicious ECG: Non-specific disturbance Age: <45 years Risk factors: No known risk factors Troponin: </= normal limit HEART Score: 1 Medical Decision Narrative: In summary, this 43year old female presents to the emergency department today w ith palpitations rapid heart rate with indigestion. On initial evaluation patient is tachycardic but hemodynamically stable, normotensive, anxious. Differential diagnosis includes but is not limited to ACS, PE, consider SVT, other arrhythmia, electrolyte abnormality, dehydration. Based on these concerns, I ordered cardiac workup, D-dimer, basic labs, hydroxyzine and IV fluids for treatment. ECG personally interpreted demonstrates sinus tachycardia, rate 130, normal intervals, no STEMI, normal axis. Labs personally reviewed demonstrate trace leukocytosis with WBC 11.8, nonspecific, nonactionable, hemoglobin normal at 13.6, trace hypokalemia on CMP is being corrected with oral repletion, initial troponin less than 0.01. Given acute onset of symptoms, serial troponins are necessary to rule out evolving MS. Patient was placed into ED observation to obtain serial troponins and hopefully prevent unnecessary admission. She was placed in the ED observation at 0439. XR personally interpreted demonstrates no acute intrathoracic abnormality, no lobar infiltrate, no pneumothorax, no widened mediastinum. See radiology read for final interpretation. D-dimer slightly elevated at 0.54. Given this and patient's tachycardia, she requires CTA PE which has been ordered. CT imaging personally interpreted demonstrate no lobar infiltrate, no large PE. See radiology read for full interpretation. Further review of prior records demonstrates patient has history of cardiac dysrhythmia diagnosis, has worn cardiac event monitor with no abnormalities, and past visits have identified tachycardia as well including her most recent urgent care visit earlier this month. On reassessment patient has had some improvement of her tachycardia. Heart rate is now down to 100-105. She still states she is having anxiety. On further discussion she states she has been prescribed a beta-tiffanie previously but never took it because she does not like feeling like things are wrong with her. I suggested that she discuss this again with her primary care physician or spiral runner as I believe something like propranolol would likely help her symptoms. Patient continues to be under ED observation on the property coordinator and has not had any other abnormalities except documented above. Patient's care was handed off to Dr. Melo at physician handoff pending repeat troponin. <Lani Melo MD - Last Filed: 06/13/23 07:47> Vital Signs: 06/13/23 03:33 06/13/23 04:30 06/13/23 05:06 Temperature 97.6 F Temperature Source Oral Pulse Rate 115 H 113 H Pulse Rate [Left] 139 H Respiratory Rate 22 8 L 11 L Blood Pressure 147/87 H 143/94 H Blood Pressure [Right Arm] 164/99 H Blood Pressure Mean [Right Arm] 120 Blood Pressure Source [Right Arm] Automatic Cuff Blood Pressure Position [Right Arm] Sitting 02 Sat by Pulse Oximetry 98 98 96 Oxygen Delivery Method Room Air 06/13/23 05:08 06/13/23 05:30 06/13/23 06:00 Temperature Temperature Source Pulse Rate 112 H 105 H 98 H Pulse Rate [Left] Respiratory Rate 11 L 9 L 18 Blood Pressure 143/94 H 133/94 H 117/79 Blood Pressure [Right Arm] Blood Pressure Mean [Right Arm] Blood Pressure Source [Right Arm] Blood Pressure Position [Right Arm] 02 Sat by Pulse Oximetry 99 98 96 Oxygen Delivery Method Lab Data Lab Results 06/13/23 03:42: WBC 11.8 H, RBC 4.47, Hgb 13.6, Hct 40.0, MCV 89.4, MCH 30.5, MCHC 34.1, RDW 13.3, Plt Count 387, MPV 7.7, Neut % (Auto) 62.2, Lymph % (Auto) 31.3, Taliaferro % (Auto) 3.7, Eos % (Auto) 1.6, Baso % (Auto) 1.1, Neut # (Auto) 7.3, Lymph # (Auto) 3.7, Taliaferro # (Auto) 0.4, Eos # (Auto) 0.2, Baso # (Auto) 0.1, D-Di scarlet 0.54 H, Sodium 136, Potassium 3.1 L, Chloride 102, Carbon Dioxide 24, Anion Gap 13.1, BUN 17, Creatinine 0.90, Estimated Creat Clear 115, Estimated GFR 68, Est GFR ( Amer) 83, Glucose 124 H, Calcium 8.7, Total Bilirubin 0.8, AST 25, ALT 22, Alkaline Phosphatase 89, Troponin I < 0.01, Total Protein 7.7, Albumin 4.6, Globulin 3.1, Albumin/Globulin Ratio 1.5, TSH 3.05, Free T4 1.14, Serum HCG, Qual Negative 06/13/23 06:35: Troponin I < 0.01 Orders (Tests/Meds): ED MEDICATIONS Generic Name Dose Route Start Last Admin Trade Name Freq PRN Reason Stop Dose Admin Sodium Chloride 10 ml 06/13/23 05:08 06/13/23 05:09 Sodium Chloride 0.9% 10ml Syr (Rad Only) IV 07/13/23 05:07 10 ml NEEDED PRN Administration Maintain IV Site Discontinued Medications Generic Name Dose Route Start Last Admin Trade Name Freq PRN Reason Stop Dose Admin Hydroxyzine Pamoate 50 mg 06/13/23 03:58 06/13/23 04:05 Hydroxyzine Pamoate 25mg Capsule PO 06/13/23 03:59 50 mg ONCE ONE Administration Lactated Ringer's 1,000 mls @ 999 mls/hr 06/13/23 03:58 06/13/23 04:06 Lactated Ringer's 1000 Ml Bag IV 06/13/23 04:58 999 mls/hr .Q1H1M ONE Administration Iopamidol 75 ml 06/13/23 05:08 06/13/23 05:09 Iopamidol-370 (76%);100ml Bottle IV 06/13/23 05:09 75 ml ONCE ONE Administration Potassium Chloride 40 meq 06/13/23 04:38 06/13/23 04:42 Potassium Chloride 20meq Tab PO 06/13/23 04:39 40 meq ONCE ONE Administration ORDERS Category Date Time Status CT angio chest PE protocol Stat Cat Scan 06/13/23 04:42 Completed Chest XR 2 view (NOT portable) [XR chest 2V] Stat Exams 06/13/23 03:50 Completed Beta HCG, Qual [HCG Qualitative, Serum] Stat Lab 06/13/23 03:42 Completed Complete Blood Count Auto Diff Stat Lab 06/13/23 03:42 Completed Comprehensive Metabolic Panel Stat Lab 06/13/23 03:42 Completed D-Dimer Stat Lab 06/13/23 03:42 Completed Free T4 (Free Thyroxine) Stat Lab 06/13/23 03:42 Completed TSH [Thyroid Stimulating Hormone] Stat Lab 06/13/23 03:42 Completed Troponin I Q3H Lab 06/13/23 06:35 Completed Troponin I Q3H Lab 06/13/23 10:00 Ordered Troponin I Stat Lab 06/13/23 03:42 Completed ECG initial Besson Routine Y 06/13/23 03:42 Completed HEART Score HEART Score: 1 Medical Decision Narrative: In summary, this 43year old female presents to the emergency department today with palpitations rapid heart rate with indigestion. On initial evaluation patient is tachycardic but hemodynamically stable, normotensive, anxious. Differential diagnosis includes but is not limited to ACS, PE, consider SVT, other arrhythmia, electrolyte abnormality, dehydration. Based on these concerns, I ordered cardiac workup, D-dimer, basic labs, hydroxyzine and IV fluids for treatment. ECG personally interpreted demonstrates sinus tachycardia, rate 130, normal in tervals, no STEMI, normal axis. Labs personally reviewed demonstrate trace leukocytosis with WBC 11.8, nonspecific, nonactionable, hemoglobin normal at 13.6, trace hypokalemia on CMP is being corrected with oral repletion, initial troponin less than 0.01. Given acute onset of symptoms, serial troponins are necessary to rule out evolving MS. Patient was placed into ED observation to obtain serial troponins and hopefully prevent unnecessary admission. She was placed in the ED observation at 0439. XR personally interpreted demonstrates no acute intrathoracic abnormality, no lobar infiltrate, no pneumothorax, no widened mediastinum. See radiology read for final interpretation. D-dimer slightly elevated at 0.54. Given this and patient's tachycardia, she requires CTA PE which has been ordered. CT imaging personally interpreted demonstrate no lobar infiltrate, no large PE. See radiology read for full interpretation. Further review of prior records demonstrates patient has history of cardiac dysrhythmia diagnosis, has worn cardiac event monitor with no abnormalities, and past visits have identified tachycardia as well including her most recent urgent care visit earlier this month. On reassessment patient has had some improvement of her tachycardia. Heart rate is now down to 100-105. She still states she is having anxiety. On further discussion she states she has been prescribed a beta-tiffanie previously but never took it because she does not like feeling like things are wrong with her. I suggested that she discuss this again with her primary care physician or spiral runner as I believe something like propranolol would likely help her symptoms. Patient continues to be under ED observation on the property coordinator and has not had any other abnormalities except documented above. Patient's care was handed off to Dr. Melo at physician handoff pending repeat troponin. The patient was placed in observation at 0439. Medical necessity for observational status is serial troponins. The patient was provided serial reevaluations and property coordinator while awaiting results. Results of testing during observation are remarkable for: Two negative troponins <0.01. Because of these results I feel patient can be discharged with follow-up with PCP. Total time in observation was 3 hours and 10 minutes. Critical Care <Solis Patel MD - Last Filed: 06/13/23 06:55> Critical Care Time Critical Care Time: No
--- NOTE | 2023-06-13 03:50 | XR_ITS ---
PROCEDURE INFORMATION: Exam: XR Chest Exam date and time: 06/13/2023 3:50 AM Age: 43 years old Clinical indication: Pain; Chest pressure; Additional info: Chest pain radiating through to back TECHNIQUE: Imaging protocol: Radiologic exam of the chest. Views: 2 views. COMPARISON: CR XR CERVICAL SPINE W FLEX/EXT 10/03/2022 3:47 PM FINDINGS: Lungs: Unremarkable. No consolidation. Pleural spaces: Unremarkable. No pleural effusion. No pneumothorax. Heart/Mediastinum: Unremarkable. No cardiomegaly. Bones/joints: Unremarkable. IMPRESSION: No acute findings.
[2023-06-13 03:59] LABS: Chloride 102 mmol/L (98-107); Potassium 3.1 mmoL/L (3.5-5.1); Sodium 136 mmol/L (136-145)
[2023-06-13 04:00] LABS: Basophils # 0.1 K/mm3 (0-0.2); Basophils % 1.1 % (0.1-2.0); Eosinophils # 0.2 K/mm3 (0.0-0.4); Eosinophils % 1.6 % (0.1-12.0); Hemoglobin 13.6 g/dL (12.2-16.2); Lymphocytes # 3.7 K/mm3 (0.7-4.5); Lymphocytes % 31.3 % (10-50); Mean Corpuscular HGB Conc 34.1 g/dL (31.8-35.4); Mean Corpuscular Hemoglobin 30.5 pg (27.0-31.2); Mean Corpuscular Volume 89.4 fl (81-99); Mean Platelet Volume 7.7 fl (7.4-10.4); Monocytes # 0.4 K/mm3 (0.1-1.0); Monocytes % 3.7 % (1.7-9.3); Neutrophils # 7.3 K/mm3 (1.8-7.8); Neutrophils % 62.2 % (37.0-80.0); Platelet Count 387 K/mm3 (142-424); Red Blood Count 4.47 M/mm3 (4.20-5.40); Red Cell Distribution Width 13.3 % (11.5-17.5); White Blood Count 11.8 K/mm3 (4.8-10.8)
[2023-06-13 04:01] LABS: Alanine Aminotransferase 22 U/L (12-78); Aspartate Amino Transferase 25 U/L (14-36); Blood Urea Nitrogen 17 mg/dl (7-17); Creatinine Clearance Estimated 115 mL/min (50-200); Estimated Glomerular Filt Rate 68 ml/min (>60); GFR (African American) 83 ML/MIN (>60)
[2023-06-13 04:02] LABS: Albumin Level 4.6 g/dl (3.5-5.0); Albumin/Globulin Ratio 1.5 (1.1-1.8); Alkaline Phosphatase 89 U/L (38-126); Anion Gap 13.1 mEq/L (5-15); Bilirubin,Total 0.8 mg/dl (0.2-1.3); Calcium 8.7 mg/dl (8.4-10.2); Carbon Dioxide 24 mmol/L (22.0-30.0); Globulin 3.1 g/dL (1.3-3.2); Glucose 124 mg/dl (74-100); Total Protein,Serum 7.7 g/dl (6.3-8.2)
[2023-06-13] MEDS: hydrOXYzine pamoate 25MG CAPSULE 50 MG PO (04:05)
[2023-06-13] MEDS: LACTATED RINGERS 1000ML 1,000 ML 999 ML IV (04:06)
[2023-06-13 04:17] LABS: Troponin I < 0.01 ng/ml (0.00-0.034)
[2023-06-13 04:40] LABS: D-Dimer 0.54 ug/mL (0.0-0.5)
[2023-06-13] MEDS: POTASSIUM CHLORIDE 20MEQ TAB 40 MEQ PO (04:42)
--- NOTE | 2023-06-13 04:42 | CT_ITS ---
PROCEDURE INFORMATION: Exam: CTA Chest With Contrast Exam date and time: 06/13/2023 5:00 AM Age: 43 years old Clinical indication: Pain; Chest pressure; Additional info: nirmal Morgan TECHNIQUE: Imaging protocol: Computed tomographic angiography of the chest with contrast. Exam focused on the arteries. 3D rendering (Not supervised by radiologist): MIP and/or 3D reconstructed images were created by the technologist. Radiation optimization: All CT scans at this facility use at least one of these dose optimization techniques: automated exposure control; mA and/or kV adjustment per patient size (includes targeted exams where dose is matched to clinical indication); or iterative reconstruction. Contrast material: ISOVUE; Contrast volume: 75 ml; Contrast route: INTRAVENOUS (IV); COMPARISON: CR XR CHEST 2V 06/13/2023 3:50 AM FINDINGS: Pulmonary arteries: Normal. No pulmonary emboli. Aorta: Unremarkable. No aortic aneurysm. No aortic dissection. Lungs: Unremarkable. No consolidation. No masses. Pleural spaces: Unremarkable. No pneumothorax. No pleural effusion. Heart: No coronary calcification is noted. . No cardiomegaly. No pericardial effusion. Lymph nodes: Unremarkable. No enlarged lymph nodes. Bones/joints: Unremarkable. No acute fracture. Soft tissues: Unremarkable. Other findings: Prior cholecystectomy.FINDINGS: IMPRESSION: No evidence of pulmonary embolus or other acute process.
[2023-06-13 04:59] LABS: HCG Qualitative, Serum Negative (Negative)
--- NOTE | 2023-06-13 05:01 | PC.NURSE ---
patient to CT
--- NOTE | 2023-06-13 05:07 | PC.NURSE ---
pt back from CT
[2023-06-13] MEDS: SODIUM CHLORIDE 0.9% 10ML SYR (RAD ONLY) 10 ML IV (05:09)
[2023-06-13] MEDS: IOPAMIDOL-370 (76%);100ML BOTTLE 75 ML IV (05:09)
[2023-06-13 06:05] LABS: Free T4 (Free Thyroxine) 1.14 ng/dl (0.78-2.19)
[2023-06-13 06:20] LABS: Thyroid Stimulating Hormone 3.05 uIU/mL (0.465-4.68)
[2023-06-13 07:28] LABS: Troponin I < 0.01 ng/ml (0.00-0.034)
== END 2023-06-13 07:54 | disposition home or self-care (01) ==
PROVIDERS: Emergency Medicine; Emergency Provider Emergency Medicine; PCP Nurse Practitioner Family
DX: R00.0 Tachycardia, unspecified (principal); R00.2 Palpitations; R11.0 Nausea; F41.1 Generalized anxiety disorder
CPT/HCPCS: 71046; 71275; 80053; 84439; 84443; 84484; 84703; 85025; 85378; 93005; 96360; 99285; Q9967

== ENCOUNTER 2023-08-11 08:08 | Outpatient (CLI) | payer BC, SELFPAY ==
--- NOTE | 2023-08-11 08:11 | MM_ITS ---
PROCEDURE INFORMATION: Exam: MG Bilateral Screening 3D Mammography Exam date and time: 08/11/2023 8:20 AM Age: 43 years old Clinical indication: Screening. No family history of breast cancer. TECHNIQUE: Imaging protocol: Bilateral Screening tomosynthesis and 2D mammography including computer-aided detection (CAD) when performed. COMPARISON: MG MM DIG SCREENING MAMM BI W/CAD 07/27/2022 10:51 AM FINDINGS: MAMMOGRAPHY: Breast composition: The breasts are almost entirely fatty. Mass: Questionable 0.4 cm mass in the left breast at 12 o'clock middle to posterior 3rd, 7-8 cm from the nipple, CC frame 1026/image 28 amd MLO 1372/17. Architectural distortion: None. Calcifications: No suspicious calcifications. Asymmetric density: None. Skin thickening: None. Axillary adenopathy: None. IMPRESSION: Patient will be recalled for left sonography for further evaluation of questionable left breast mass. ASSESSMENT: BI-RADS Category 0: Incomplete: Need Additional Imaging Evaluation and/or Prior Mammograms for Comparison
== END 2023-08-11 23:59 ==
LOC: RAD 08:09
PROVIDERS: Visit Provider Obstetrics & Gynecology
DX: Z12.31 Encounter for screening mammogram for malignant neoplasm of breast (principal)
CPT/HCPCS: 77063; 77067

== ENCOUNTER 2023-08-23 14:04 | Outpatient (CLI) | payer BC, SELFPAY ==
--- NOTE | 2023-08-23 14:05 | US_ITS ---
PROCEDURE INFORMATION: Exam: US Left Breast, Complete Exam date and time: 08/23/2023 2:44 PM Age: 43 years old Clinical indication: Callback for additional assessment of questionable 0.4 cm left 12 o'clock breast mass identified on screening mammogram 08/11/2023 TECHNIQUE: Imaging protocol: Complete ultrasound of all four quadrants of the left breast and the retroareolar regions, including ultrasound of the axilla when performed. COMPARISON: MG MM DIG SCREENING MAMM BI W/CAD 08/11/2023 8:20 AM FINDINGS: ULTRASOUND: Breast ultrasound findings: 4 quadrant and retroareolar left breast ultrasound with axilla ultrasound. Special attention to the 12 o'clock left breast 8 cm from the nipple Only normal glandular structures are present in the regions assessed No suspicious solid or cystic mass is present. No benign-appearing solid or cystic mass is present. No architectural distortion or shadowing is present. No axillary adenopathy is present. IMPRESSION: No sonographic evidence of malignancy. Diagnostic mammogram is required to further characterize the reported 0.4 cm 12 o'clock left breast mass reported on 08/11/2023 screening mammogram ASSESSMENT: BI-RADS 0, incomplete, needs additional imaging evaluation
== END 2023-08-23 23:59 | disposition home or self-care (01) ==
LOC: RAD 14:05
PROVIDERS: PCP Obstetrics & Gynecology; Visit Provider Obstetrics & Gynecology
DX: R92.8 Other abnormal and inconclusive findings on diagnostic imaging of breast (principal); N63.20 Unspecified lump in the left breast, unspecified quadrant
CPT/HCPCS: 76641

== ENCOUNTER 2023-08-31 13:35 | Outpatient (CLI) | payer BC, SELFPAY ==
--- NOTE | 2023-08-31 13:36 | MM_ITS ---
PROCEDURE INFORMATION: Exam: MG Left Diagnostic Breast Tomosynthesis Exam date and time: 08/31/2023 1:25 PM Age: 43 years old Clinical indication: Patient recalled on the basis of a screening mammogram for further evaluation; Left breast; mass TECHNIQUE: Imaging protocol: Left Diagnostic tomosynthesis and 2D mammography including computer-aided detection (CAD) when performed. Unilateral or bilateral exam. COMPARISON: 1. MG MM DIG SCREENING MAMM BI W/CAD 08/11/2023 8:20 AM 2. MG MM DIG SCREENING MAMM BI W/CAD 07/27/2022 10:51 AM FINDINGS: MAMMOGRAPHY: Breast composition: The breast is almost entirely fatty (based on the most recent screening mammogram report). Breast mammogram findings: Digital diagnostic spot compression views of the left breast and 90 degree lateral view of the left breast demonstrate normal overlapping fibroglandular structures without persistent mass or asymmetry identified. IMPRESSION: No mammographic evidence of malignancy. Annual bilateral mammographic screening is recommended unless otherwise clinically indicated. ASSESSMENT: BI-RADS Category 1: Negative
== END 2023-08-31 23:59 | disposition home or self-care (01) ==
LOC: RAD 13:36
PROVIDERS: PCP Nurse Practitioner Family; Visit Provider Obstetrics & Gynecology
DX: R92.8 Other abnormal and inconclusive findings on diagnostic imaging of breast (principal); N63.20 Unspecified lump in the left breast, unspecified quadrant
CPT/HCPCS: 77061; 77065; G0279

== ENCOUNTER 2024-06-26 06:28 | Day surgery (SDC) | payer BC, SELFPAY ==
--- NOTE | 2024-06-25 10:19 | SUR.PREOP ---
1018: LM with arrival time and preop instructions. Call back number left.
[2024-06-26 07:06] VITALS: BMI 34.0
[2024-06-26 07:16] LABS: Urine Pregnancy, HCG Qual. Negative (Negative)
[2024-06-26 07:18] VITALS: BP 113/73; PULSE 82; RESP 18; TEMP 36.4; O2SAT 94
--- NOTE | 2024-06-26 07:32 | P.PNANES_ITS ---
[facility] Disclaimer: The information contained in this section may have been updated after the patient was seen, as this information can be updated by other users. Medical History Sleep apnea History of COVID-19 Perimenopausal vasomotor symptoms Attention deficit disorder (ADD) in adult Generalized anxiety disorder Tinnitus TMJ (dislocation of temporomandibular joint) Surgical History History of cholecystectomy Family History Other Cancer Colon cancer Diabetes Heart attack Stroke Social History Smoking Status: Never smoker second hand exposure: No alcohol intake: never counseling given: No substance use type: denies use counseling given: No current occupational status: employed Travel in the last 8 weeks: None adopted: No caregiver/support person: Yes (for her 12 year old son) foster care: No household members: spouse housing: house lives independently: Yes marital status: number of children: 2 number of grandchildren: 0 education level: college service: No snf: No 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 Travel: No sexually active: Yes caffeine: Yes physical activity: none dipesh/amish: Orthodox special dipesh needs: No working smoke detector in home: Yes fire extinguisher in home: Yes carbon monox detector in home: Yes firearms in home: No do you feel safe at home: Yes victim of physical abuse: No victim of emotional abuse: No victim of sexual abuse: No would you like helpful sources: No Have you lived/traveled outside [place] in past 30 days?: No Contact w/someone who lives/traveled outside US past 30 days?: No Exposure to someone with infectious disease in past 14 days?: No Do you have a fever (greater than 100.4 F or 38 C)?: No Have you tested positive for COVID-19: No Exposed to someone with COVID-19 in past 14 days?: No Do you have a sore throat?: No Do you have a cough?: No Do you have any weakness?: No Do you have any diarrhea?: No Are you experiencing any unusual bleeding?: No Do you have any muscle aches/pain?: No Do you have any abdominal pain?: No Are you experiencing loss of taste or smell?: No [facility] Anesthesia Checklist Patient Identification Patient Identification: Arm Band Structural Data Admitted From: Home Planned Operative Procedure/s: Colonoscopy Consent for Planned Operative Procedure(s) Verified: Yes Verified Documents: Surgical Consent and History and Physical NPO Status Verified Time NPO: 02:00 (finished prep) Additional verifications Anesthesia Reactions: No Airway Assessment Mallampati Score:: Class II C-Spine Mobility Assessed: Yes TMJ Mobility Assessed: Yes Dentition: Good Dentition Neurological Assessment Level of Consciousness: Awake, Alert and Appropriate Anesthesia Plan Anesthesia Risk discussed: Yes Anesthesia Plan: Verified ASA Class: II Anesthesia Type: MAC
[2024-06-26 07:34] LABS: POC Glucose,Bedside 116 (70-110)
--- NOTE | 2024-06-26 07:57 | P.HP_ITS ---
History of Present Illness *Admission Date: 06/26/24 *Reason for visit:: Chronic constipation/blood in stool *History of present illness: Mrs. Allen is a 44-year-old female who is here for diagnostic colonoscopy secondary to change in bowel caliber and bloody stool. She does have a family history of colon cancer. Her last colonoscopy was 2017. The examination is deemed medically necessary for diagnostic colonoscopy. The patient has been seen, interviewed and examined prior to the procedure by both myself and the anesthesia provider. [facility] Disclaimer: The information contained in this section may have been updated after the patient was seen, as this information can be updated by other users. Medical History Sleep apnea History of COVID-19 Perimenopausal vasomotor symptoms Attention deficit disorder (ADD) in adult Generalized anxiety disorder Tinnitus TMJ (dislocation of temporomandibular joint) Surgical History History of cholecystectomy Family History Other Cancer Colon cancer Diabetes Heart attack Stroke Social History Smoking Status: Never smoker second hand exposure: No alcohol intake: never counseling given: No substance use type: denies use counseling given: No current occupational status: employed Travel in the last 8 weeks: None adopted: No caregiver/support person: Yes (for her 12 year old son) foster care: No household members: spouse housing: house lives independently: Yes marital status: number of children: 2 number of grandchildren: 0 education level: college service: No correction: No 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 Travel: No sexually active: Yes caffeine: Yes physical activity: none dipesh/catholic: Alevism special dipesh needs: No working smoke detector in home: Yes fire extinguisher in home: Yes carbon monox detector in home: Yes firearms in home: No do you feel safe at home: Yes victim of physical abuse: No victim of emotional abuse: No victim of sexual abuse: No would you like helpful sources: No Have you lived/traveled outside US in past 30 days?: No Contact w/someone who lives/traveled outside US past 30 days?: No Exposure to someone with infectious disease in past 14 days?: No Do you have a fever (greater than 100.4 F or 38 C)?: No Have you tested positive for COVID-19: No Exposed to someone with COVID-19 in past 14 days?: No Do you have a sore throat?: No Do you have a cough?: No Do you have any weakness?: No Do you have any diarrhea?: No Are you experiencing any unusual bleeding?: No Do you have any muscle aches/pain?: No Do you have any abdominal pain?: No Are you experiencing loss of taste or smell?: No Other Medical History Have you received the Pneumonia Vaccine: No Review of Systems Review of Systems Review of systems (narrative): Negative *Cardiovascular Comments: Negative *Gastrointestinal Comments: Negative *Genitourinary Comments: Negative *Musculoskeletal Comments: Negative *Neurologic Comments: Negative Meds Home Medications and Allergies Home Medications ?Medication ?Instructions ?Recorded ?Confirmed ?Type alprazolam 0.5 mg tablet 0.5 mg PO NEEDED PRN Anxiety 11/17/21 06/26/24 History fluticasone propionate 50 1 - 2 spray intranasal DAILY #16 05/20/23 06/26/24 Rx mcg/actuation nasal grams spray,suspension (Flonase Allergy Relief) bisoprolol fumarate 5 mg tablet 5 mg PO DAILY #90 tabs 06/20/24 06/26/24 Rx buspirone 10 mg tablet 10 mg PO BID 06/25/24 06/26/24 History sertraline 100 mg tablet 100 mg PO BID Depression 06/25/24 06/26/24 History New Prescriptions to Start Prescriptions: Allergies Allergy/AdvReac Type Severity Reaction Status Date / Time No Known Allergies Allergy Verified 06/25/24 10:29 Exam Data for Last 24 hours Vital signs and Labs for Last 24 Hours: Temp Pulse Resp BP Pulse Ox O2 Del Method 97.6 F 82 18 113/73 94 L Room Air 06/26/24 07:18 06/26/24 07:18 06/26/24 07:18 06/26/24 07:18 06/26/24 07:18 06/26/24 07:18 Laboratory Results - last 24 hr 06/26/24 07:05: Urine HCG, Qual Negative 06/26/24 07:24: POC Glucose 116 H I & O for Last 24 hours: Intake & Output 06/23/24 06/24/24 06/25/24 06/26/24 23:59 23:59 23:59 23:59 Weight 192 lb *Routine HEENT Exam Head: Present normocephalic Eye: Present EOMI and PERRL ENT: Present mucous membranes moist *Routine Neck Exam Neck: Present supple *Routine Respiratory Exam Respiratory: Present CTA bilaterally *Routine Cardiovascular Exam Cardiovascular: Present RRR *Routine Abdominal Exam Abdominal: Present soft and normoactive bowel sounds; Absent tenderness *Routine Rectal Exam Rectal:: deferred *Routine Genitalia Exam Genitalia:: deferred *Routine Extremities Exam Extremities: Absent cyanosis, clubbing or edema *Routine Skin Exam Skin: Present warm; Absent rash *Routine Neurological Exam Neurological: Present alert and oriented X3 Assessment and Plan *Assessment and plan (1) Change in stool caliber: Status: Acute Category: Medical Code(s): R19.5 - Other fecal abnormalities (2) Blood in stool: Status: Acute Category: Medical Code(s): K92.1 - Melena (3) Family history of colon cancer: Status: Acute Category: Medical Code(s): Z80.0 - Family history of malignant neoplasm of digestive organs (4) History of colon polyps: Status: Acute Category: Medical Code(s): Z86.0100 - Personal history of colon polyps, unspecified Plan A/P: 1. Change in bowel habits with blood in stool and family history of colon cancer is the preprocedural diagnosis. The patient will be anesthetized/sedated using MAC sedation. The patient has been seen and examined. Cardiac and lung assessment prior to the examination is stable. Proceed with planned diagnostic colonoscopy
--- NOTE | 2024-06-26 08:02 | HMH.PROCNOTE ---
[facility] Procedure Note Date: 06/26/24 Time: 08:17 Procedure Note:: Colonoscopy Procedure Report: Colonoscopy with cold biopsies and monopolar ablation/coagulation of internal hemorrhoids Endoscopist: Rick Tobar II, MD Referring physician: SARAI Quiñones, Darius [address]ilda [address]ohue, [place] [address] Date of Procedure: June 26, 2024 Equipment: Olympus 190 variable stiffness pediatric colonoscope Sedation: MAC sedation Indication: Mrs. Allen is a 44-year-old female who is here for diagnostic colonoscopy secondary to a change in bowel habits with thinner/smaller caliber bowel movements and blood in the stool. She has noted bright red blood on the toilet tissue intermittently but sometimes in the toilet bowl. She does have chronic constipation for which she takes MiraLAX and sometimes glycerin suppositories. The patient does have bloating but reports no abdominal pain or weight loss. Her father had advanced colon cancer at the age of 63. The patient's last colonoscopy was 6 years ago in [facility] and she had a couple of polyps removed at that time. Procedure: Prior to the procedure, a history and physical exam was performed, and patient's medications and allergies were reviewed. The risks, benefits and alternatives of the sedation and procedure were discussed with the patient. All questions were answered and informed consent was obtained. The patient was brought to the procedure room. Patient identification and proposed procedure were verified by the physician and the nurse. The patient was placed in a left lateral decubitus position and the scope was passed under direct vision. Throughout the procedure, the patient's blood pressure, pulse, and oxygen saturations were monitored continuously. The colonoscopy was accomplished without difficulty. The patient tolerated the procedure well. Findings: On digital rectal examination there was normal rectal tone. There were no external hemorrhoids. The colonoscope was introduced through the anal canal to the rectum and advanced to the cecum. The ileocecal valve and appendiceal orifice were identified. The scope was advanced a short distance into the ileum which appeared grossly normal. The scope was then withdrawn into the colon. The cecum, ascending, transverse, descending, sigmoid and rectum were grossly normal. There was a single 3 mm flat polyp in the rectum removed via cold biopsy. There were no other mucosal abnormalities identified. Upon retroflexion within the rectum there were grade 2 internal hemorrhoids. The 3 columns of internal hemorrhoids were ablated/coagulated using monopolar force coagulation. The preparation was excellent throughout with Gardiner Preparation Score of 9. The cecal time was 12 minutes. Impression: 1. Diminutive 3 mm rectal polyp 2. Grade 2 internal hemorrhoids status post monopolar coagulation/ablation Plan: I will recommend Linzess plus bulking FiberCon. I will follow-up the polyp histology and recommend repeat surveillance colonoscopy again in 5 years.
[2024-06-26 08:23] VITALS: BP 144/57; PULSE 71; RESP 16; TEMP 36.2; O2SAT 95
[2024-06-26 08:33] VITALS: BP 99/67; PULSE 67; RESP 17; O2SAT 96
[2024-06-26 08:43] VITALS: BP 109/72; PULSE 61; RESP 17; O2SAT 98
[2024-06-26 08:53] VITALS: BP 108/70; PULSE 62; RESP 17; O2SAT 98
== END 2024-06-26 08:55 | disposition home or self-care (01) ==
PROVIDERS: PCP Nurse Practitioner Family; Visit Provider Internal Medicine Gastroenterology
PROC: 0DJD8ZZ Inspection of Lower Intestinal Tract, Via Natural or Artificial Opening Endoscopic (ICD-10-PCS; CPT 45378; principal; 2024-06-26 08:00)
DX: K92.1 Melena (principal); Z80.0 Family history of malignant neoplasm of digestive organs; Z86.0100 Personal history of colon polyps, unspecified; K59.04 Chronic idiopathic constipation; K63.5 Polyp of colon; K64.1 Second degree hemorrhoids
CPT/HCPCS: 45380; 45388; 81025; 82962

== ENCOUNTER 2024-07-04 07:48 | Outpatient (CLI) | payer BC, SELFPAY ==
--- NOTE | 2024-07-04 07:51 | US_ITS ---
FINAL REPORT TECHNIQUE: Sonographic images of the thyroid gland were obtained in the longitudinal and transverse planes. CLINICAL HISTORY: GOITER COMPARISON: None FINDINGS: The right lobe measures 1.7 x 4.6 x 1.0 cm. The right lobe is homogeneous. There are no cystic or solid nodules. The left lobe measures 1.7 x 4.0 x 1.1 cm. The left lobe is homogeneous. There are no cystic or solid nodules. The isthmus measures 3 mm. This is normal. IMPRESSION: Unremarkable ultrasound of the thyroid. No cystic or solid nodules. Reviewed, Interpreted and Dictated by Shayna Perez MD Transcribed by Nancy Castro Authenticated and [facility]
== END 2024-07-04 23:59 | disposition home or self-care (01) ==
PROVIDERS: PCP Nurse Practitioner Family; Visit Provider Nurse Practitioner Family
DX: E04.9 Nontoxic goiter, unspecified (principal)
CPT/HCPCS: 76536

== ENCOUNTER 2024-10-02 08:19 | Outpatient (CLI) | payer BC, SELFPAY ==
[2024-10-02 13:46] LABS: Microscopic, Urine URINE MICROSCOPIC (MICROSCOPIC)
[2024-10-02 14:05] LABS: Basophils # 0.1 K/mm3 (0-0.2); Basophils % 0.7 % (0.1-2.0); Eosinophils # 0.1 Kmm3 (0.0-0.4); Eosinophils % 1.3 % (0.1-12.0); Hematocrit 39.2 % (37.0-47.0); Immature Granulocytes # 0.03 10^3uL; Immature Granulocytes % 0.3 %; Lymphocytes # 2.7 K/mm3 (0.7-4.5); Lymphocytes % 27.9 % (10-50); Mean Corpuscular HGB Conc 33.2 g/dL (31.8-35.4); Mean Corpuscular Hemoglobin 30.3 pg (27.0-31.2); Mean Corpuscular Volume 91.4 fl (81-99); Mean Platelet Volume 10.1 fl (7.4-10.4); Monocytes # 0.5 K/mm3 (0.1-1.0); Monocytes % 4.7 % (1.7-9.3); Neutrophils # 6.3 K/mm3 (1.8-7.8); Neutrophils % 65.1 % (37.0-80.0); Nucleated Red Blood Cells # 0 10^3/uL; Nucleated Red Blood Cells % 0 %; Platelet Count 369 K/mm3 (142-424); Red Blood Count 4.29 M/mm3 (4.20-5.40); Red Cell Distribution Width 12.3 % (11.5-17.5); Red Cell Distribution Width-SD 40.4 fL; White Blood Count 9.7 K/mm3 (4.8-10.8)
[2024-10-02 14:20] LABS: Appearance,Urine CLEAR (Clear); Bilirubin,Urine Negative (Negative); Blood, Urine Negative (Negative); Glucose,Urine (UA) Negative (Negative); Ketones,Urine Negative (Negative); Leukocyte Esterase,Urine Negative (Negative); Nitrate,Urine Negative (Negative); Protein,Urine Negative (Negative); Specific Gravity, Urine 1.015 (1.005-1.030); Urobilinogen,Urine 0.2 EU/dl (0.2)
[2024-10-02 14:28] LABS: Color,Urine Straw (Yellow)
[2024-10-02 14:58] LABS: Bacteria,Urine Trace /lpf; WBC,Urine Occasional #/hpf (0-3)
[2024-10-02 16:10] LABS: HIV Combo NEGATIVE (Negative)
[2024-10-02 16:17] LABS: Hepatitis C Ab Qual. W/ RFX NEGATIVE (Negative)
[2024-10-02 16:39] LABS: Hemoglobin A1C 5.6 % (4.0-6.0)
[2024-10-02 17:19] LABS: Albumin Level 4.4 g/dl (3.5-5.0); Chloride 103 mmol/L (98-107); Potassium 4.7 mmoL/L (3.5-5.1); Sodium 137 mmol/L (136-145)
[2024-10-02 17:22] LABS: Alanine Aminotransferase 13 U/L (12-78); Albumin/Globulin Ratio 1.9 (1.1-1.8); Alkaline Phosphatase 74 U/L (38-126); Anion Gap 13.7 mEq/L (5-15); Aspartate Amino Transferase 19 U/L (14-36); Bilirubin,Total 0.5 mg/dl (0.2-1.3); Blood Urea Nitrogen 13 mg/dl (7-17); Carbon Dioxide 25 mmol/L (22.0-30.0); Cholesterol 199 mg/dl (140-200); Estimated Glomerular Filt Rate 91 ml/min (>60); GFR (African American) 110 ML/MIN (>60); Globulin 2.3 g/dL (1.3-3.2); Glucose 105 mg/dl (74-100); Iron 87 ug/dL (37-170); Total Protein,Serum 6.7 g/dl (6.3-8.2); Triglycerides 162 mg/dl (30-150); VLDL Cholesterol 32 mg/dL (0-40)
[2024-10-02 17:23] LABS: Chol/HDL Ratio 4.4 (1-3.5); HDL Cholesterol 45 mg/dl (40-60)
[2024-10-02 17:34] LABS: Direct LDL Cholesterol 120.72 mg/dL (100-129)
[2024-10-02 17:37] LABS: Total Iron Binding Capacity 300 ug/dL (265-497)
[2024-10-02 17:58] LABS: Thyroid Stimulating Hormone 2.42 uIU/mL (0.465-4.68)
[2024-10-02 18:00] LABS: Ferritin 27.8 ng/ml (6.24-137)
[2024-10-02 18:10] LABS: Vitamin B12 762 pg/mL (239-931)
[2024-10-02 19:14] LABS: Free T4 (Free Thyroxine) 0.99 ng/dl (0.78-2.19)
== END 2024-10-02 23:59 | disposition home or self-care (01) ==
LOC: LAB.DROPOF 22:44
PROVIDERS: PCP Nurse Practitioner Family; Visit Provider Nurse Practitioner Family
DX: Z11.59 Encounter for screening for other viral diseases (principal); Z13.220 Encounter for screening for lipoid disorders; I10 Essential (primary) hypertension; E11.9 Type 2 diabetes mellitus without complications; G47.33 Obstructive sleep apnea (adult) (pediatric); R53.83 Other fatigue; R41.3 Other amnesia; R00.2 Palpitations; F32.A Depression, unspecified; F41.9 Anxiety disorder, unspecified; F98.8 Other specified behavioral and emotional disorders with onset usually occurring in childhood and adolescence
CPT/HCPCS: 80053; 80061; 81001; 82306; 82607; 82728; 83036; 83540; 83550; 84439; 84443; 85025; 86803; 87086; 87389